=== PATIENT | male | born 1960 | race Caucasian/White ===

== ENCOUNTER 2017-11-04 16:14 | Observation (INO) | payer OTHER ==
[2017-11-04] MEDS: NITROGLYCERIN (SL) 0.4 MG TAB SL (19:34)
[2017-11-04] MEDS: NITROGLYCERIN 2% 1 GM OINT PKT TD (19:34)
[2017-11-04] MEDS: ASPIRIN 81 MG TAB PO (19:34)
[2017-11-04] MEDS: FUROSEMIDE 40 MG INJ IV (19:34)
[2017-11-04 19:36] LABS: WHITE BLOOD COUNT 12.6 10^3/ul (4.8-10.8)
[2017-11-04 19:36] LABS: ADD MAN DIFF? NO; BASOPHIL # 0.1 10^3/ul (0.0-0.1); BASOPHILS % 0.4 % (0.0-2.0); EOSINOPHILS # 0.1 10^3/ul (0.0-0.5); EOSINOPHILS % 0.5 % (0.0-7.0); HEMATOCRIT 39.2 % (42.0-52.0); HEMOGLOBIN 12.3 g/dl (14.0-18.0); LYMPHOCYTES # 2.1 10^3/ul (0.8-2.9); LYMPHOCYTES % 16.3 % (15.0-51.0); MEAN CORPUSCULAR HEMOGLOBIN 25.5 pg (29.0-33.0); MEAN CORPUSCULAR HGB CONC 31.4 g/dl (32.0-37.0); MEAN CORPUSCULAR VOLUME 81.3 fl (82.0-101.0); MEAN PLATELET VOLUME 11.5 fl (7.4-10.4); MONOCYTE # 0.9 10^3/ul (0.3-0.9); MONOCYTES % 6.8 % (0.0-11.0); NEUTROPHIL # 9.6 10^3/ul (1.6-7.5); NEUTROPHILS % 75.7 % (39.0-77.0); PLATELET COUNT 343 10^3/UL (140-415); RED BLOOD COUNT 4.82 10^6/ul (4.70-6.10); RED CELL DISTRIBUTION WIDTH 14.6 % (11.5-14.5)
[2017-11-04 19:56] LABS: ANION GAP 16 (8-16); BLOOD UREA NITROGEN 19 mg/dl (7-20); CALCIUM 9.7 mg/dl (8.4-10.2); CARBON DIOXIDE 25 mmol/L (21-31); CHLORIDE 101 mmol/L (97-110); CREATININE 1.35 mg/dl (0.61-1.24); GLUCOSE 96 mg/dl (70-220); SODIUM 138 mmol/L (135-144)
[2017-11-04 20:08] LABS: B-TYPE NATRIURETIC PEPTIDE 35 PG/ML (0-125); TROPONIN-I < 0.010 ng/ml (0.000-0.120)
[2017-11-04] MEDS ORDERED: ONDANSETRON 4 MG INJ IV (21:00)
[2017-11-04] MEDS ORDERED: ACETAMINOPHEN 325 MG TAB PO (21:00)
[2017-11-05] MEDS: HYDROCODONE/APAP (5/325) TAB PO (00:10)
[2017-11-05 02:04] LABS: CREATINE KINASE 89 IU/L (23-200)
[2017-11-05 02:16] LABS: CK INDEX 0.5; CK-MB 0.47 ng/ml (0.0-2.4); TROPONIN-I < 0.010 ng/ml (0.000-0.120)
[2017-11-05] MEDS ORDERED: NITROGLYCERIN (SL) 0.4 MG TAB SL (02:30)
[2017-11-05] MEDS ORDERED: IPRATROPIUM (NEB) 0.5 MG/2.5 ML AMP NEB (02:30)
[2017-11-05] MEDS ORDERED: ONDANSETRON 4 MG INJ IV (02:30)
[2017-11-05] MEDS ORDERED: NACL 0.9% 3 ML SYG IV (02:30)
[2017-11-05] MEDS ORDERED: ACETAMINOPHEN 325 MG TAB PO (02:30)
[2017-11-05 05:46] LABS: ADD MAN DIFF? NO
[2017-11-05 05:49] LABS: WHITE BLOOD COUNT 12.4 10^3/ul (4.8-10.8)
[2017-11-05 05:49] LABS: BASOPHIL # 0.1 10^3/ul (0.0-0.1); BASOPHILS % 0.4 % (0.0-2.0); EOSINOPHILS # 0.1 10^3/ul (0.0-0.5); EOSINOPHILS % 0.4 % (0.0-7.0); HEMOGLOBIN 11.3 g/dl (14.0-18.0); LYMPHOCYTES # 2.1 10^3/ul (0.8-2.9); LYMPHOCYTES % 16.8 % (15.0-51.0); MEAN CORPUSCULAR HEMOGLOBIN 25.5 pg (29.0-33.0); MEAN CORPUSCULAR HGB CONC 31.4 g/dl (32.0-37.0); MEAN CORPUSCULAR VOLUME 81.1 fl (82.0-101.0); MEAN PLATELET VOLUME 11.9 fl (7.4-10.4); MONOCYTE # 0.9 10^3/ul (0.3-0.9); NEUTROPHIL # 9.3 10^3/ul (1.6-7.5); NEUTROPHILS % 75.1 % (39.0-77.0); PLATELET COUNT 320 10^3/UL (140-415); RED BLOOD COUNT 4.44 10^6/ul (4.70-6.10); RED CELL DISTRIBUTION WIDTH 14.7 % (11.5-14.5)
[2017-11-05] MEDS: FUROSEMIDE 20 MG TAB PO ×2 (06:04→17:25)
[2017-11-05 06:18] LABS: ALANINE AMINOTRANSFERASE 27 IU/L (13-69); ALBUMIN 4.1 g/dl (3.3-4.9); ALBUMIN/GLOBULIN RATIO 0.95; ALKALINE PHOSPHATASE 108 IU/L (42-121); ANION GAP 17 (8-16); ASPARTATE AMINO TRANSFERASE 21 IU/L (15-46); BILIRUBIN,INDIRECT 0.7 mg/dl (0-1.1); BILIRUBIN,TOTAL 0.7 mg/dl (0.2-1.3); BLOOD UREA NITROGEN 22 mg/dl (7-20); CALCIUM 9.5 mg/dl (8.4-10.2); CARBON DIOXIDE 26 mmol/L (21-31); CHLORIDE 101 mmol/L (97-110); CREATININE 1.54 mg/dl (0.61-1.24); GLUCOSE 100 mg/dl (70-220); POTASSIUM 4.9 mmol/L (3.5-5.1); SODIUM 139 mmol/L (135-144); TOTAL PROTEIN 8.4 g/dl (6.1-8.1)
[2017-11-05 08:12] LABS: CREATINE KINASE 85 IU/L (23-200)
[2017-11-05 08:25] LABS: CK INDEX 0.4; CK-MB 0.35 ng/ml (0.0-2.4); TROPONIN-I < 0.010 ng/ml (0.000-0.120)
[2017-11-05] MEDS: METOPROLOL 25 MG TAB PO (08:25)
[2017-11-05] MEDS ORDERED: traMADol 50 MG TAB PO (10:00)
[2017-11-05] MEDS: HEPARIN 5,000 UNIT/0.5 ML VIAL SC ×2 (10:12→22:11)
[2017-11-05] MEDS: SOD CHLORIDE 0.9% 1,000 ML IV (11:55)
[2017-11-05] MEDS: IBUPROFEN 600 MG TAB PO ×3 (11:55→22:00)
[2017-11-05] MEDS: NEBIVOLOL 5 MG TAB PO (17:56)
[2017-11-06 05:54] LABS: ADD MAN DIFF? NO
[2017-11-06 05:57] LABS: BASOPHIL # 0.1 10^3/ul (0.0-0.1); BASOPHILS % 0.5 % (0.0-2.0); EOSINOPHILS # 0.1 10^3/ul (0.0-0.5); EOSINOPHILS % 1.3 % (0.0-7.0); HEMATOCRIT 36.7 % (42.0-52.0); HEMOGLOBIN 11.7 g/dl (14.0-18.0); LYMPHOCYTES % 21.1 % (15.0-51.0); MEAN CORPUSCULAR HEMOGLOBIN 25.5 pg (29.0-33.0); MEAN CORPUSCULAR HGB CONC 31.9 g/dl (32.0-37.0); MEAN CORPUSCULAR VOLUME 80.1 fl (82.0-101.0); MEAN PLATELET VOLUME 12.1 fl (7.4-10.4); MONOCYTE # 0.8 10^3/ul (0.3-0.9); MONOCYTES % 8.2 % (0.0-11.0); NEUTROPHIL # 6.6 10^3/ul (1.6-7.5); NEUTROPHILS % 68.5 % (39.0-77.0); PLATELET COUNT 353 10^3/UL (140-415); RED BLOOD COUNT 4.58 10^6/ul (4.70-6.10); RED CELL DISTRIBUTION WIDTH 14.6 % (11.5-14.5)
[2017-11-06 05:57] LABS: WHITE BLOOD COUNT 9.6 10^3/ul (4.8-10.8)
[2017-11-06 06:21] LABS: INR 1.04; PROTIME 13.7 Sec (11.9-14.9); PT RATIO 1.1
[2017-11-06] MEDS: FUROSEMIDE 20 MG TAB PO ×2 (06:22→17:36)
[2017-11-06] MEDS: IBUPROFEN 600 MG TAB PO ×3 (06:23→14:00)
[2017-11-06 06:30] LABS: ANION GAP 15 (8-16); BLOOD UREA NITROGEN 22 mg/dl (7-20); CALCIUM 9.3 mg/dl (8.4-10.2); CARBON DIOXIDE 27 mmol/L (21-31); CHLORIDE 103 mmol/L (97-110); CREATININE 1.23 mg/dl (0.61-1.24); GLUCOSE 109 mg/dl (70-220); MAGNESIUM 2.1 mg/dl (1.7-2.5); PHOSPHORUS 4.1 mg/dl (2.5-4.9); POTASSIUM 3.7 mmol/L (3.5-5.1); SODIUM 141 mmol/L (135-144)
[2017-11-06 07:43] LABS: HEMOGLOBIN A1C 5.6 % (0-5.9)
[2017-11-06 08:55] LABS: ERYTHROCYTE SEDIMENTATION RATE 100 mm/Hr (0-20)
[2017-11-06] MEDS: NEBIVOLOL 5 MG TAB PO (09:19)
[2017-11-06] MEDS: HEPARIN 5,000 UNIT/0.5 ML VIAL SC (09:23)
== END 2017-11-06 18:49 | disposition home or self-care (01) ==
LOC: 6WM 20:43 → E/R 16:14
DX: R06.00 Dyspnea, unspecified (principal); I10 Essential (primary) hypertension; D64.9 Anemia, unspecified; E66.9 Obesity, unspecified; Z68.33 Body mass index [BMI] 33.0-33.9, adult; R60.0 Localized edema; N17.9 Acute kidney failure, unspecified
CPT/HCPCS: 36415; 71045; 73610; 73610-RT; 73721; 80048; 80053; 82550; 82553; 83036; 83735; 83880; 84100; 84443; 84484; 85025; 85610; 85651; 93005; 93306; 93970; 96374; 99285-25; G0378